=== PATIENT | male | born 1965 | race Caucasian/White ===

== ENCOUNTER 2017-02-07 03:31 | Emergency (ER) | payer MEDICARE ==
[2017-02-07 03:54] LABS: BASOPHILS 0.6 %; BASOPHILS ABSOLUTE 0.07 10/3/uL (0.0-0.16); EOSINOPHILS 1.5 %; EOSINOPHILS ABSOLUTE 0.18 10/3/uL (0.0-0.53); ER CBC TAT 0 Hrs 14 Mins; HEMATOCRIT 46.7 % (40.0-51.0); HEMOGLOBIN 15.9 g/dL (13.6-17.8); IMMATURE GRANULOCYTES 0.2 %; IMMATURE GRANULOCYTES ABSOLUTE 0.02 10/3/uL (0.0-0.11); LYMPHOCYTES 33.3 %; LYMPHOCYTES ABSOLUTE 3.97 10/3/uL (0.67-4.30); MANUAL DIFF NO %; MEAN CORPUSCULAR HEMOGLOB 30.1 pg (26.0-34.0); MEAN CORPUSCULAR VOLUME 88.4 fL (80-100); MEAN PLATELET VOLUME 11.6 fL (9.2-13.0); MONOCYTES 6.1 %; MONOCYTES ABSOLUTE 0.73 10/3/uL (0.21-1.20); NEUTROPHILS 58.3 %; NEUTROPHILS ABSOLUTE 6.94 10/3/uL (2.02-8.40); PLATELET COUNT 351 10/3/uL (150-400); RBC DISTRIBUTION WIDTH 13.1 % (12.0-16.0); RED CELL COUNT 5.28 10/6/uL (4.7-6.1); WHITE BLOOD CELLS 11.9 10/3/uL (4.5-10.5)
[2017-02-07 03:57] LABS: CHLORIDE, SERUM 101 MMOL/L (96-112); CO2 (CARBON DIOXIDE) 32 MMOL/L (24-34); CREATININE 0.98 MG/DL (0.70-1.30); GFR AFRICAN AMERICAN 104 ML/MIN (>=60); GFR NON AFRICAN AMERICAN 90 ML/MIN (>=60); SODIUM, SERUM 144 MMOL/L (135-148)
[2017-02-07 03:58] LABS: BUN (BLOOD UREA NITROGEN) 13 MG/DL (6-23); CALCIUM, SERUM 9.2 MG/DL (8.5-10.4); GLUCOSE, SERUM 226 MG/DL (60-99); POTASSIUM, SERUM 3.4 MMOL/L (3.5-5.3)
[2017-06-14] MEDS ORDERED: KLONO1 PO (17:27)
[2017-06-14] MEDS ORDERED: NITROSTAT0.4 MG SL ×2 (17:28→17:37)
[2017-06-14] MEDS ORDERED: LYRICA150 MG PO (17:28)
[2017-06-14] MEDS ORDERED: FLONASE NAS (17:29)
[2017-06-14] MEDS ORDERED: NOVOLOGMIX SC (17:31)
[2017-06-14] MEDS ORDERED: GLUCOPHAGE1000 MG PO (17:31)
[2017-06-14] MEDS ORDERED: ZOCOR80 MG PO (17:33)
[2017-06-14] MEDS ORDERED: OXYCOD PO (17:34)
[2017-06-14] MEDS ORDERED: MSCONT15 PO (17:34)
[2017-06-14] MEDS ORDERED: ASAB PO (17:35)
[2017-06-14] MEDS ORDERED: TUMSROLL PO (17:35)
[2017-06-14] MEDS ORDERED: THERAGESIC TOP (17:36)
[2017-06-16] MEDS ORDERED: ASA5GR PO (17:14)
[2017-06-16] MEDS ORDERED: LIPITOR80 MG (17:15)
[2017-06-18] MEDS ORDERED: ASABAYER PO (01:23)
[2017-06-18] MEDS ORDERED: LIPITOR80 MG PO (01:24)
[2017-06-18] MEDS ORDERED: TUMSROLL PO (01:25)
[2017-06-18] MEDS ORDERED: FLONASE NAS (01:28)
[2017-06-18] MEDS ORDERED: KLONO1 PO (01:28)
[2017-06-18] MEDS ORDERED: NITROSTAT0.4 MG SL (01:31)
[2017-06-18] MEDS ORDERED: MSCONT15 PO (01:31)
[2017-06-18] MEDS ORDERED: NOVOLOGMIX SC (01:31)
[2017-06-18] MEDS ORDERED: GLUCOPHAGE1000 MG PO (01:31)
[2017-06-18] MEDS ORDERED: OXYCOD PO (01:32)
[2017-06-18] MEDS ORDERED: LYRICA150 MG PO (01:33)
[2017-06-18] MEDS ORDERED: THERA-GESI1 TOP (01:33)
[2017-06-19] MEDS ORDERED: HABIT21 TOP (16:14)
== END 2017-02-07 05:10 | disposition home or self-care (01) ==
LOC: ER 03:31
PROVIDERS: Nurse Practitioner
DX: E11.42 Type 2 diabetes mellitus with diabetic polyneuropathy (principal); G62.9 Polyneuropathy, unspecified; M54.9 Dorsalgia, unspecified; G89.29 Other chronic pain; F11.90 Opioid use, unspecified, uncomplicated; Z76.5 Malingerer [conscious simulation]; F17.200 Nicotine dependence, unspecified, uncomplicated; E11.65 Type 2 diabetes mellitus with hyperglycemia; I25.2 Old myocardial infarction
CPT/HCPCS: 80048; 82962; 85025; 96372; 99284; J1885; J2360

== ENCOUNTER 2017-03-11 05:49 | Emergency (ER) | payer MEDICARE ==
[2017-03-11 02:03] LABS: BASOPHILS 0.6 %; BASOPHILS ABSOLUTE 0.08 10/3/uL (0.0-0.16); EOSINOPHILS 2.5 %; EOSINOPHILS ABSOLUTE 0.34 10/3/uL (0.0-0.53); ER CBC TAT 0 Hrs 00 Mins; HEMATOCRIT 42.6 % (40.0-51.0); HEMOGLOBIN 14.7 g/dL (13.6-17.8); IMMATURE GRANULOCYTES 0.4 %; IMMATURE GRANULOCYTES ABSOLUTE 0.05 10/3/uL (0.0-0.11); LYMPHOCYTES 30.8 %; LYMPHOCYTES ABSOLUTE 4.19 10/3/uL (0.67-4.30); MEAN CORPUS HGB CONC 34.5 g/dL (32.0-36.0); MEAN CORPUSCULAR HEMOGLOB 31.7 pg (26.0-34.0); MEAN PLATELET VOLUME 10.9 fL (9.2-13.0); MONOCYTES 5.3 %; MONOCYTES ABSOLUTE 0.72 10/3/uL (0.21-1.20); NEUTROPHILS 60.4 %; NEUTROPHILS ABSOLUTE 8.23 10/3/uL (2.02-8.40); PLATELET COUNT 318 10/3/uL (150-400); RBC DISTRIBUTION WIDTH 13.3 % (12.0-16.0); RED CELL COUNT 4.64 10/6/uL (4.7-6.1); WHITE BLOOD CELLS 13.6 10/3/uL (4.5-10.5)
[2017-03-11 02:04] LABS: MANUAL DIFF NO %; MEAN CORPUSCULAR VOLUME 91.8 fL (80-100)
[2017-03-11 02:19] LABS: ALBUMIN 3.7 G/DL (3.5-5.0); BUN (BLOOD UREA NITROGEN) 11 MG/DL (6-23); CALCIUM, SERUM 8.7 MG/DL (8.5-10.4); CHLORIDE, SERUM 108 MMOL/L (96-112); CO2 (CARBON DIOXIDE) 31 MMOL/L (24-34); CREATININE 0.95 MG/DL (0.70-1.30); GFR AFRICAN AMERICAN 108 ML/MIN (>=60); GFR NON AFRICAN AMERICAN 93 ML/MIN (>=60); POTASSIUM, SERUM 3.8 MMOL/L (3.5-5.3); SGOT(AST) 6 U/L (5-40); SGPT(ALT) 13 U/L (5-65); SODIUM, SERUM 144 MMOL/L (135-148); TOTAL PROTEIN 6.9 G/DL (6.0-8.5)
[2017-03-11 02:20] LABS: A/G RATIO 1.2 (0.7-1.9); ALKALINE PHOSPHATASE 68 U/L (45-117); GLOBULIN 3.2 G/DL (2.5-4.1); GLUCOSE, SERUM 146 MG/DL (60-99); TOTAL BILIRUBIN 0.4 MG/DL (0-1.2)
[2017-03-11 05:07] LABS: ASCORBIC ACID (UR NOT ORDER) NEG (NEG); BILIRUBIN, URINE NEGATIVE (NEG); ER URINALYSIS TAT 0 Hrs 09 Mins; KETONE, URINE NEGATIVE (NEG); LEUKOCYTE ESTERASE(NOT OR NEG (NEG); NITRITE (URINE) NEG (NEG); WBC (NOT ORDERED) (RFLEX) < 1 (0-5)
[2017-06-14] MEDS ORDERED: KLONO1 PO (17:27)
[2017-06-14] MEDS ORDERED: NITROSTAT0.4 MG SL ×2 (17:28→17:37)
[2017-06-14] MEDS ORDERED: LYRICA150 MG PO (17:28)
[2017-06-14] MEDS ORDERED: FLONASE NAS (17:29)
[2017-06-14] MEDS ORDERED: NOVOLOGMIX SC (17:31)
[2017-06-14] MEDS ORDERED: GLUCOPHAGE1000 MG PO (17:31)
[2017-06-14] MEDS ORDERED: ZOCOR80 MG PO (17:33)
[2017-06-14] MEDS ORDERED: MSCONT15 PO (17:34)
[2017-06-14] MEDS ORDERED: OXYCOD PO (17:34)
[2017-06-14] MEDS ORDERED: ASAB PO (17:35)
[2017-06-14] MEDS ORDERED: TUMSROLL PO (17:35)
[2017-06-14] MEDS ORDERED: THERAGESIC TOP (17:36)
[2017-06-16] MEDS ORDERED: ASA5GR PO (17:14)
[2017-06-16] MEDS ORDERED: LIPITOR80 MG (17:15)
[2017-06-18] MEDS ORDERED: ASABAYER PO (01:23)
[2017-06-18] MEDS ORDERED: LIPITOR80 MG PO (01:24)
[2017-06-18] MEDS ORDERED: TUMSROLL PO (01:25)
[2017-06-18] MEDS ORDERED: KLONO1 PO (01:28)
[2017-06-18] MEDS ORDERED: FLONASE NAS (01:28)
[2017-06-18] MEDS ORDERED: NITROSTAT0.4 MG SL (01:31)
[2017-06-18] MEDS ORDERED: GLUCOPHAGE1000 MG PO (01:31)
[2017-06-18] MEDS ORDERED: NOVOLOGMIX SC (01:31)
[2017-06-18] MEDS ORDERED: MSCONT15 PO (01:31)
[2017-06-18] MEDS ORDERED: OXYCOD PO (01:32)
[2017-06-18] MEDS ORDERED: THERA-GESI1 TOP (01:33)
[2017-06-18] MEDS ORDERED: LYRICA150 MG PO (01:33)
[2017-06-19] MEDS ORDERED: HABIT21 TOP (16:14)
== END 2017-03-11 05:50 | disposition home or self-care (01) ==
LOC: ER 05:49
PROVIDERS: Specialist
DX: R10.31 Right lower quadrant pain (principal); G89.29 Other chronic pain; F17.200 Nicotine dependence, unspecified, uncomplicated; E10.9 Type 1 diabetes mellitus without complications; Z95.5 Presence of coronary angioplasty implant and graft
CPT/HCPCS: 74177; 80053; 81001; 83690; 85025; 96374; 96375; 99284; J1980; J2405; Q9967

== ENCOUNTER 2017-05-18 23:36 | Observation (INO) | payer MEDICARE ==
--- NOTE | ~2017-05-18 | HP ---
History And Physical [place] [id number] [facility] [place]. [address] NAME: DUY VAUGHN : 67 STATUS : ADM Maico PAT#: [id number] AGE: 52 ADM/REG DATE : 05/18/17 MR#: [id number] REPORT SERV DATE: 05/19/17 DICTATED BY: MEAGAN OLIVARES DATE: 05/19/17 REPORT STATUS : Draft TRANSCRIBED BY: VIRGEN DATE: 05/19/17 DATE OF ADMISSION: 05/18/2017 PRIMARY CARE PROVIDER: Surinder Desir. [facility], CHIEF COMPLAINT: Atypical chest pain that is reproducible on exam. HISTORY OF PRESENT ILLNESS: A pleasant 52-year-old Vietnamese vet with known history of CAD, status post BMS to RCA [place] [address] Atkins with an EF of 40% at that time, who presents to our facility with atypical chest pain. The patient has a flat affect and is hard of hearing as well. States that on Friday, he experienced a chest pain. His , who was present at bedside and provides most of the information, states that her complained of left arm pain around 1800 hours and later around 2000 hours, came to her describing some left-sided chest pain that radiated to his left arm. He confirms associated shortness of breath and nausea. Denies diaphoresis, dizziness, or belching. At its most intense, he rates the chest pain as 7/10. At time of interview in the CPOU, he rates it a 4/10 and it is reproducible on exam across his left chest. He states the chest pain lasted for hours. He also interjects that sometimes he has a "stabbing" pain that lasts a few seconds. There is no exertional component described. The patient and confirm one heart attack in the past. Denies history of stroke, DVT, or pulmonary embolus. The patient denies any recent fever or chills. No palpitations. No syncopal episodes. Denies PND or orthopnea. PAST MEDICAL HISTORY: 1. CAD. a. Self-reports NH x1 with BMS to RCA in 2007. 2. AODM. 3. Medical noncompliance. 4. History of dyslipidemia. 5. Ongoing tobacco abuse. 6. PTSD. 7. Traumatic brain injury. 8. Chronic neck and back pain. 9. Hard of hearing. 10.Imbalance. 11. pound weight loss. PAST SURGICAL HISTORY: 1. Left knee surgery. 2. Cervical surgery. 3. Right ear surgery twice. 4. Cochlear implant. 5. Tonsillectomy. SOCIAL HISTORY: He is , with two children. Disabled. Does not have an exercise History And Physical [address] [address] NAME: DUY VAUGHN : 67 STATUS : ADM Maico PAT#: [id number] AGE: 52 ADM/REG DATE : 05/18/17 MR#: [id number] REPORT SERV DATE: 05/19/17 DICTATED BY: MEAGAN OLIVARES DATE: 05/19/17 REPORT STATUS : Draft TRANSCRIBED BY: VIRGEN DATE: 05/19/17 routine. Smokes one pack per day for 20 plus years. Rarely consumes alcohol. Denies illicits. FAMILY HISTORY: Mother with history of strokes and "blood clots," at the age of 65 of lung cancer. REVIEW OF SYSTEMS: A 14-point review of systems performed, significant for HPI including ambulates with a cane. Previously on simvastatin and metformin, doses unknown. Does not take aspirin, lisinopril, or beta-mary kate. Does not check his blood sugar. Recent hemoglobin A1c reportedly 7 and cholesterol "good." Otherwise, complete review of systems obtained and negative. HOME MEDICATIONS: BuSpar 7.5 mg twice daily, Klonopin 1 mg three times daily, Neurontin 800 mg three times daily, Mobic 15 mg daily, Robaxin 500 mg four times daily, Maria Esther unknown strength and frequency, Endocet 10/325 and unable to verify, Lyrica 150 mg twice daily. PHYSICAL EXAMINATION: VITAL SIGNS: Bilateral blood pressures on arrival, right 133/72, left 136/67, this morning 96/64; pulse 65; respirations 13; temperature 97.8; O2 saturation 94% on room air. Height 6 feet 2 inches, weight 166 pounds, BMI 21. GENERAL: Cooperative, in no apparent distress. HEENT: Pupils 2 mm. Sclera nonicteric. Nares patent. Moist mucous membranes. No xanthelasma. NECK: Trachea midline. No thyromegaly. No JVD. No bruits. LYMPH: No cervical lymphadenopathy. No supraclavicular lymphadenopathy. CHEST: Tender to palpation in left chest. RESPIRATORY: Lungs, wheeze bilaterally. CARDIOVASCULAR: Regular rate. No murmur, rub, or gallop appreciated. EXTREMITIES: Without edema. Pulses 2+ bilaterally. ABDOMEN: Soft, nontender, nondistended. Normal bowel sounds auscultated throughout. No organomegaly. SKIN: Warm, dry extremities. No pallor or cyanosis. PSYCHIATRIC: Flat affect. Alert, oriented x3. LABORATORY DATA: Troponin less than 0.02 x3. Potassium 4.2, BUN 12, creatinine 0.98, glucose 219, magnesium 1.8. WBC 10.4, hemoglobin 15.5, hematocrit 44.0, platelet count 226,000. EKG, sinus rhythm, RBBB, inferior Q-waves. PCI, 2007, BMS to RCA, EF 40%. ASSESSMENT AND PLAN: 1. Chest pain. The patient has been observed in the CPOU. Three sets of cardiac markers negative. EKG stable. N.P.O. for a dobutamine stress test today given audible wheeze on exam. The patient will be discharged to home if negative study. If anything suggestive of ischemia, Cardiology referral will be initiated. Otherwise, the patient will be asked to follow up with his PCP and will attempt to re-establish with [facility] Cardiology. History And Physical [address] [address] NAME: DUY VAUGHN : 67 STATUS : ADM Maico PAT#: [id number] AGE: 52 ADM/REG DATE : 05/18/17 MR#: [id number] REPORT SERV DATE: 05/19/17 DICTATED BY: MEAGAN OLIVARES DATE: 05/19/17 REPORT STATUS : Draft TRANSCRIBED BY: VIRGEN DATE: 05/19/17 2. Clarify home meds with PCP or [facility] specific to metformin doses and statin. 3. Coronary artery disease. I have recommended aspirin 81 mg at discharge on a daily basis. We will check a fasting lipid panel. 4. Adult-onset diabetes mellitus. Check a hemoglobin A1c. Level 1 sliding scale correction. 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 5. Ongoing tobacco abuse. Counseled regarding cessation. Bronchodilator protocol q.6 hours with albuterol as needed. 6. Medical noncompliance. Aspirin 81 daily at discharge. Clarify home meds. A lengthy discussion with the patient regarding ADA diet adherence, checking blood sugar on a daily basis, and compliance with the diabetic regimen. KATH/MODL Meagan Olivares MSN, [employer]-BC / [id number] CC: Meagan Olivares MSN, [employer]-BC
[2017-05-18 23:51] LABS: BASOPHILS 0.3 %; BASOPHILS ABSOLUTE 0.03 10/3/uL (0.0-0.16); EOSINOPHILS 1.9 %; ER CBC TAT 0 Hrs 05 Mins; HEMOGLOBIN 15.5 g/dL (13.6-17.8); IMMATURE GRANULOCYTES 0.4 %; IMMATURE GRANULOCYTES ABSOLUTE 0.04 10/3/uL (0.0-0.11); LYMPHOCYTES 28.3 %; LYMPHOCYTES ABSOLUTE 2.94 10/3/uL (0.67-4.30); MANUAL DIFF NO %; MEAN CORPUS HGB CONC 35.2 g/dL (32.0-36.0); MEAN CORPUSCULAR HEMOGLOB 31.7 pg (26.0-34.0); MONOCYTES 6.4 %; MONOCYTES ABSOLUTE 0.66 10/3/uL (0.21-1.20); NEUTROPHILS 62.7 %; NEUTROPHILS ABSOLUTE 6.52 10/3/uL (2.02-8.40); PLATELET COUNT 226 10/3/uL (150-400); RBC DISTRIBUTION WIDTH 13.3 % (12.0-16.0); RED CELL COUNT 4.89 10/6/uL (4.7-6.1); WHITE BLOOD CELLS 10.4 10/3/uL (4.5-10.5)
[2017-05-18 23:58] LABS: PARTIAL THROMBO TIME 28.4 SEC (22.5-37.2); PROTIME (NOT ORD) 12.9 SEC (12.0-14.5)
[2017-05-19 00:06] LABS: BUN (BLOOD UREA NITROGEN) 12 MG/DL (6-23); CALCIUM, SERUM 9.2 MG/DL (8.5-10.4); CHEST PAIN PROFILE TAT 0 Hrs 20 Mins; CHLORIDE, SERUM 103 MMOL/L (96-112); CO2 (CARBON DIOXIDE) 31 MMOL/L (24-34); CREATININE 0.98 MG/DL (0.70-1.30); GFR AFRICAN AMERICAN 103 ML/MIN (>=60); GFR NON AFRICAN AMERICAN 89 ML/MIN (>=60); POTASSIUM, SERUM 4.2 MMOL/L (3.5-5.3); SODIUM, SERUM 139 MMOL/L (135-148); TROPONIN I <0.02 NG/ML (<0.05)
[2017-05-19 00:07] LABS: GLUCOSE, SERUM 219 MG/DL (60-99)
[2017-05-19] MEDS ORDERED: FAMILY TO BRING (01:40)
[2017-05-19 06:01] LABS: TROPONIN I <0.02 NG/ML (<0.05)
[2017-05-19] MEDS ORDERED: METHOC500B PO (06:39)
[2017-05-19] MEDS ORDERED: MOBIC15 MG PO (06:58)
[2017-05-19] MEDS ORDERED: BUSPIRONE7.5 MG PO (07:09)
[2017-05-19] MEDS ORDERED: KLONO1 PO (07:10)
[2017-05-19] MEDS ORDERED: NEUR800 PO (07:10)
[2017-05-19] MEDS ORDERED: LYRICA150 MG PO (07:11)
[2017-05-19] MEDS ORDERED: . (07:15)
[2017-05-19] MEDS ORDERED: ENDOCET1 TA3 (07:16)
[2017-05-19] MEDS ORDERED: KADIANSR30 PO (07:17)
[2017-05-19 10:58] LABS: CHOL/HDL RATIO(NOT ORDER) 6.3 (0-5); CHOLESTEROL 194 MG/DL (< 200); HDL CHOLESTEROL 31 MG/DL (> 39); LDL CHOLESTEROL 135 MG/DL (< 130); NON-HDL CHOLESTEROL 163 MG/DL (< 160); TRIGLYCERIDE 140 MG/DL (< 150)
[2017-05-19] MEDS ORDERED: INSNOV7030 SC (14:26)
[2017-05-19] MEDS ORDERED: FLONASE NAS (14:26)
[2017-05-19] MEDS ORDERED: LANTUS SC (14:30)
[2017-05-19] MEDS ORDERED: PRIN10 PO (14:30)
[2017-05-19] MEDS ORDERED: GLUCPH PO (14:31)
[2017-05-19] MEDS ORDERED: ZOCOR80 MG PO (14:35)
[2017-05-19] MEDS ORDERED: PROZAC (14:35)
[2017-06-14] MEDS ORDERED: KLONO1 PO (17:27)
[2017-06-14] MEDS ORDERED: NITROSTAT0.4 MG SL ×2 (17:28→17:37)
[2017-06-14] MEDS ORDERED: LYRICA150 MG PO (17:28)
[2017-06-14] MEDS ORDERED: FLONASE NAS (17:29)
[2017-06-14] MEDS ORDERED: GLUCOPHAGE1000 MG PO (17:31)
[2017-06-14] MEDS ORDERED: NOVOLOGMIX SC (17:31)
[2017-06-14] MEDS ORDERED: ZOCOR80 MG PO (17:33)
[2017-06-14] MEDS ORDERED: MSCONT15 PO (17:34)
[2017-06-14] MEDS ORDERED: OXYCOD PO (17:34)
[2017-06-14] MEDS ORDERED: ASAB PO (17:35)
[2017-06-14] MEDS ORDERED: TUMSROLL PO (17:35)
[2017-06-14] MEDS ORDERED: THERAGESIC TOP (17:36)
[2017-06-16] MEDS ORDERED: ASA5GR PO (17:14)
[2017-06-16] MEDS ORDERED: LIPITOR80 MG (17:15)
[2017-06-18] MEDS ORDERED: ASABAYER PO (01:23)
[2017-06-18] MEDS ORDERED: LIPITOR80 MG PO (01:24)
[2017-06-18] MEDS ORDERED: TUMSROLL PO (01:25)
[2017-06-18] MEDS ORDERED: KLONO1 PO (01:28)
[2017-06-18] MEDS ORDERED: FLONASE NAS (01:28)
[2017-06-18] MEDS ORDERED: MSCONT15 PO (01:31)
[2017-06-18] MEDS ORDERED: GLUCOPHAGE1000 MG PO (01:31)
[2017-06-18] MEDS ORDERED: NITROSTAT0.4 MG SL (01:31)
[2017-06-18] MEDS ORDERED: NOVOLOGMIX SC (01:31)
[2017-06-18] MEDS ORDERED: OXYCOD PO (01:32)
[2017-06-18] MEDS ORDERED: LYRICA150 MG PO (01:33)
[2017-06-18] MEDS ORDERED: THERA-GESI1 TOP (01:33)
[2017-06-19] MEDS ORDERED: HABIT21 TOP (16:14)
== END 2017-05-19 16:19 | disposition home or self-care (01) ==
LOC: ER 23:36 → CDU1 23:40
PROVIDERS: Clinical Nurse Specialist; Specialist
DX: R07.9 Chest pain, unspecified (principal); I25.10 Atherosclerotic heart disease of native coronary artery without angina pectoris; E11.8 Type 2 diabetes mellitus with unspecified complications; G89.29 Other chronic pain; M54.2 Cervicalgia; M54.5 Low back pain; F17.210 Nicotine dependence, cigarettes, uncomplicated; Z91.19 Patient's noncompliance with other medical treatment and regimen; Z79.82 Long term (current) use of aspirin; Z90.89 Acquired absence of other organs; Z98.890 Other specified postprocedural states; Z82.3 Family history of stroke; Z80.1 Family history of malignant neoplasm of trachea, bronchus and lung; Z79.899 Other long term (current) drug therapy; Z98.1 Arthrodesis status
CPT/HCPCS: 71020; 78452; 80048; 80061; 82962; 83036; 83735; 84484; 85025; 85610; 85730; 93005; 93017; 96374; 96376; 99285; A9270-GY; A9502; G0378; J0153

== ENCOUNTER 2017-05-20 15:40 | Emergency (ER) | payer MEDICARE ==
[2017-05-20 14:16] LABS: BASOPHILS 0.5 %; BASOPHILS ABSOLUTE 0.05 10/3/uL (0.0-0.16); EOSINOPHILS 0.8 %; EOSINOPHILS ABSOLUTE 0.09 10/3/uL (0.0-0.53); HEMATOCRIT 44.5 % (40.0-51.0); HEMOGLOBIN 15.3 g/dL (13.6-17.8); IMMATURE GRANULOCYTES 0.3 %; IMMATURE GRANULOCYTES ABSOLUTE 0.03 10/3/uL (0.0-0.11); LYMPHOCYTES 21.4 %; LYMPHOCYTES ABSOLUTE 2.29 10/3/uL (0.67-4.30); MEAN CORPUS HGB CONC 34.4 g/dL (32.0-36.0); MEAN CORPUSCULAR HEMOGLOB 30.9 pg (26.0-34.0); MEAN CORPUSCULAR VOLUME 89.9 fL (80-100); MEAN PLATELET VOLUME 11.4 fL (9.2-13.0); MONOCYTES 4.5 %; MONOCYTES ABSOLUTE 0.48 10/3/uL (0.21-1.20); NEUTROPHILS 72.5 %; NEUTROPHILS ABSOLUTE 7.74 10/3/uL (2.02-8.40); PLATELET COUNT 235 10/3/uL (150-400); RBC DISTRIBUTION WIDTH 13.1 % (12.0-16.0); RED CELL COUNT 4.95 10/6/uL (4.7-6.1); WHITE BLOOD CELLS 10.7 10/3/uL (4.5-10.5)
[2017-05-20 14:21] LABS: MANUAL DIFF NO %
[2017-05-20 14:22] LABS: PARTIAL THROMBO TIME 28.7 SEC (22.5-37.2); PROTIME (NOT ORD) 13.3 SEC (12.0-14.5)
[2017-05-20 14:32] LABS: BUN (BLOOD UREA NITROGEN) 9 MG/DL (6-23); CALCIUM, SERUM 9.1 MG/DL (8.5-10.4); CHEST PAIN PROFILE TAT 0 Hrs 22 Mins; CHLORIDE, SERUM 106 MMOL/L (96-112); CO2 (CARBON DIOXIDE) 29 MMOL/L (24-34); GFR AFRICAN AMERICAN 101 ML/MIN (>=60); GFR NON AFRICAN AMERICAN 87 ML/MIN (>=60); GLUCOSE, SERUM 257 MG/DL (60-99); POTASSIUM, SERUM 4.3 MMOL/L (3.5-5.3); SODIUM, SERUM 140 MMOL/L (135-148); TROPONIN I <0.02 NG/ML (<0.05)
[~2017-05-20 15:40] MED LIST: .; BUSPIRONE7.5 MG PO; ENDOCET1 TA3; FAMILY TO BRING; FLONASE NAS; GLUCPH PO; INSNOV7030 SC; KADIANSR30 PO; KLONO1 PO; LANTUS SC; LYRICA150 MG PO; METHOC500B PO; MOBIC15 MG PO; NEUR800 PO; PRIN10 PO; PROZAC; ZOCOR80 MG PO
[2017-06-14] MEDS ORDERED: KLONO1 PO (17:27)
[2017-06-14] MEDS ORDERED: NITROSTAT0.4 MG SL ×2 (17:28→17:37)
[2017-06-14] MEDS ORDERED: LYRICA150 MG PO (17:28)
[2017-06-14] MEDS ORDERED: FLONASE NAS (17:29)
[2017-06-14] MEDS ORDERED: NOVOLOGMIX SC (17:31)
[2017-06-14] MEDS ORDERED: GLUCOPHAGE1000 MG PO (17:31)
[2017-06-14] MEDS ORDERED: ZOCOR80 MG PO (17:33)
[2017-06-14] MEDS ORDERED: OXYCOD PO (17:34)
[2017-06-14] MEDS ORDERED: MSCONT15 PO (17:34)
[2017-06-14] MEDS ORDERED: ASAB PO (17:35)
[2017-06-14] MEDS ORDERED: TUMSROLL PO (17:35)
[2017-06-14] MEDS ORDERED: THERAGESIC TOP (17:36)
[2017-06-16] MEDS ORDERED: ASA5GR PO (17:14)
[2017-06-16] MEDS ORDERED: LIPITOR80 MG (17:15)
[2017-06-18] MEDS ORDERED: ASABAYER PO (01:23)
[2017-06-18] MEDS ORDERED: LIPITOR80 MG PO (01:24)
[2017-06-18] MEDS ORDERED: TUMSROLL PO (01:25)
[2017-06-18] MEDS ORDERED: KLONO1 PO (01:28)
[2017-06-18] MEDS ORDERED: FLONASE NAS (01:28)
[2017-06-18] MEDS ORDERED: NOVOLOGMIX SC (01:31)
[2017-06-18] MEDS ORDERED: MSCONT15 PO (01:31)
[2017-06-18] MEDS ORDERED: NITROSTAT0.4 MG SL (01:31)
[2017-06-18] MEDS ORDERED: GLUCOPHAGE1000 MG PO (01:31)
[2017-06-18] MEDS ORDERED: OXYCOD PO (01:32)
[2017-06-18] MEDS ORDERED: THERA-GESI1 TOP (01:33)
[2017-06-18] MEDS ORDERED: LYRICA150 MG PO (01:33)
[2017-06-19] MEDS ORDERED: HABIT21 TOP (16:14)
== END 2017-05-20 16:14 | disposition home or self-care (01) ==
LOC: ER 15:40
PROVIDERS: Emergency Medicine
DX: R07.89 Other chest pain (principal); F17.200 Nicotine dependence, unspecified, uncomplicated; E11.9 Type 2 diabetes mellitus without complications; F43.10 Post-traumatic stress disorder, unspecified; Z90.89 Acquired absence of other organs; Z79.4 Long term (current) use of insulin; Z79.899 Other long term (current) drug therapy
CPT/HCPCS: 71020; 80048; 83735; 84484; 85025; 85610; 85730; 93005; 96372; 99285; J2800